=== PATIENT | female | born 1995 | race Caucasian/White ===

== ENCOUNTER 2018-11-25 11:50 | Emergency (ER) | payer OTHER ==
[~2018-11-25] VITALS: Ht 162.6 cm; Wt 83.0 kg
[2018-11-25 11:56] VITALS: BP 132/83; Ht 162.6 cm; Wt 83.0 kg
== END 2018-11-25 12:32 | disposition home or self-care (01) ==
LOC: ED 11:50
DX: N39.0 Urinary tract infection, site not specified (principal)